=== PATIENT | female | born 1975 | race Caucasian/White ===

== ENCOUNTER 2019-01-07 13:47 | Emergency (ER) | payer OTHER ==
[2019-01-07] MEDS ORDERED: PROCHLORPERAZINE EDISYLATE INJ 10 MG/2 ML VIAL IV ONE (14:56)
[2019-01-07] MEDS ORDERED: KETOROLAC TROMETHAMINE INJ/PF 30 MG/1 ML SDV IV ONE (14:56)
[2019-01-07] MEDS ORDERED: NORMAL SALINE 1000 ML 1,000 ML IV ONE (14:56)
--- NOTE | 2019-01-07 15:20 | ER Document Report ---
ED Medical Screen (RME) - General Chief Complaint: Headache Stated Complaint: HEADACHE Time Seen by Provider: 01/07/19 14:52 Notes: Patient is a 43-year-old female presents to the emergency department for generalized migraine, photophobia, nausea, vomiting. Patient states she has an extensive history of migraines and has had a consistent migraine for the last 3 weeks. Patient states she was to [facility] emergency room 4 times and adm itted to the ICU twice for DHE treatment. Patient states she is also going to her primary care provider for times. Patient states at no time during the last 3 weeks that she had any relief from her migraines. Patient states she is coming to this facility for the first time in hopes to get some "answers." Patient states at [facility] they did perform a CT. States she wishes to sign paperwork to get the medical records transferred to us if she does not have to go for another CT scan. GENERAL: Alert, interacts well. HEAD: Normocephalic, atraumatic. EYES: Pupils equal, round, and reactive to light. Extraocular movements intact. Photophobia noted NEUROLOGICAL: Alert and oriented x3. Normal speech. SKIN: Warm, dry, normal turgor. No rashes or lesions noted. I have greeted and performed a rapid initial assessment of this patient. A comprehensive ED assessment and evaluation of the patient, analysis of test results and completion of the medical decision making process will be conducted by additional ED providers. TRAVEL OUTSIDE OF THE [place] IN LAST 30 DAYS: No - Related Data Allergies/Adverse Reactions: codeine Allergy (Verified 01/07/19 13:53) Penicillins Allergy (Verified 01/07/19 13:53) Past Medical History - Past Medical History Cardiac Medical History: Reports: Hx Hypertension Pulmonary Medical History: Reports: Hx Asthma Neurological Medical History: Reports: Hx Migraine Renal/ Medical History: Denies: Hx Peritoneal Dialysis Past Surgical History: Reports: Hx Breast Surgery - milk duct removal, Hx Section - 2, Hx Cholecystectomy, Hx Hysterectomy Physical Exam - Vital signs Vitals: Temp Pulse Resp BP Pulse Ox 98.4 F 72 18 141/78 H 99 01/07/19 13:59 01/07/19 13:59 01/07/19 13:59 01/07/19 13:59 01/07/19 13:59 Course - Vital Signs Vital signs: Temp Pulse Resp BP Pulse Ox 98.4 F 72 18 141/78 H 99 01/07/19 13:59 01/07/19 13:59 01/07/19 13:59 01/07/19 13:59 01/07/19 13:59
[2019-01-07] MEDS ORDERED: DEXAMETHASONE SOD PHOS INJ 10 MG/1 ML VIAL IV ONE (18:35)
[2019-01-07] MEDS ORDERED: TETRACAINE HCL 0.5% OPH SOLN 4 ML OD ONE (18:40)
--- NOTE | 2019-01-07 18:40 | ER Document Report ---
ED General - General Chief Complaint: Headache Stated Complaint: HEADACHE Time Seen by Provider: 01/07/19 14:52 TRAVEL OUTSIDE OF THE [place] IN LAST 30 DAYS: No - HPI Notes: Patient is a 43-year-old female that presents to the emergency department for chief complaint of migraine headache. Patient reports migraine headache for the last 3 weeks. She states it is located behind her right eye. The pain is sharp. She has associated nausea, photophobia and phonophobia. She does have a history of migraine headaches and states this feels the same as previous headaches. She reports multiple visits to her primary care doctor as well as admission at [facility] for this exact migraine. She states when she was discharged from their facility her pain was 8/10. She does have an appointment tomorrow with her primary care provider for reevaluation. She states the pain was too severe which is why she came back. She has been taking Topamax and Imitrex at home for the migraine. She denies any head injury or new symptoms today compared to prior migraines in the past. She denies any fever, neck pain, chest pain, shortness of breath, vomiting and abdominal pain. Past Medical History: Migraine headaches, anxiety Past Surgical History: Breast reconstruction, x2, partial hysterectomy, cholecystectomy Social History: Denies tobacco and alcohol use Family History: Reviewed and noncontributory for presenting illness Allergies: Reviewed, see documented allergy list. REVIEW OF SYSTEMS: CONSTITUTIONAL : No fever No chills No diaphoresis No recent illness EENT: No vision changes No congestion No sore throat CARDIOVASCULAR: No chest pain No palpitations RESPIRATORY: No shortness of breath No cough No difficulty breathing GASTROINTESTINAL: No abdominal pain No nausea No vomiting No diarrhea GENITOURINARY: No dysuria No hematuria No difficulty urinating MUSCULOSKELETAL: No back pain No leg pain No arm pain SKIN: No rashes No lesions LYMPHATIC: No swollen, enlarged glands. NEUROLOGICAL: No lightheadedness headache No weakness No paresthesias PSYCHIATRIC: No anxiety No depression PHYSICAL EXAMINATION: Vital signs reviewed, nursing noted reviewed. GENERAL: Appears uncomfortable, well-nourished HEAD: Atraumatic, normocephalic. EYES: Eyes appear normal, extraocular movements intact, sclera anicteric, conjunctiva are normal. ENT: nares patent, oropharynx clear without exudates. Moist mucous membranes. NECK: Normal range of motion, supple without lymphadenopathy LUNGS: Breath sounds clear to auscultation bilaterally and equal. No wheezes rales or rhonchi. HEART: Regular rate and rhythm without murmurs ABDOMEN: Soft, nontender, normoactive bowel sounds. No rebound, guarding, or rigidity. No masses appreciated. EXTREMITIES: Nontender, good range of motion, no pitting or edema. NEUROLOGICAL: No focal neurological deficits. Moves all extremities spontaneously Motor and sensory grossly intact on exam. PSYCH: Normal mood, normal affect. SKIN: Warm, Dry, normal turgor, no rashes or lesions noted on exposed skin - Related Data Allergies/Adverse Reactions: codeine Allergy (Verified 01/07/19 13:53) Penicillins Allergy (Verified 01/07/19 13:53) Past Medical History - Social History Smoking Status: Never Smoker Family History: Reviewed & Not Pertinent Patient has suicidal ideation: No Patient has homicidal ideation: No - Past Medical History Cardiac Medical History: Reports: Hx Hypertension Pulmonary Medical History: Reports: Hx Asthma Neurological Medical History: Reports: Hx Migraine Renal/ Medical History: Denies: Hx Peritoneal Dialysis Past Surgical History: Reports: Hx Breast Surgery - milk duct removal, Hx Section - 2, Hx Cholecystectomy, Hx Hysterectomy Physical Exam - Vital signs Vitals: Temp Pulse Resp BP Pulse Ox 98.4 F 72 18 141/78 H 99 01/07/19 13:59 01/07/19 13:59 01/07/19 13:59 01/07/19 13:59 01/07/19 13:59 Course - Re-evaluation Re-evalutation: 01/07/19 18:39 Vitals reviewed. Nursing notes reviewed. Patient's migraine is reportedly the same as her previous migraines. She did have a recent admission to the hospital which included CT scan. She states the CT brain was normal. She was evaluated by Dr. Thomas, neurology at [facility] as well. Patient denies any change in her symptoms today compared to the previous 3 weeks. She is afebrile with no focal neurologic deficits. Further workup of the etiology of her headache not currently indicated. Patient received medications in triage which she reports have not improved her headache. She will be given a dose of Decadron. Patient has stated the only medication that has helped previously was ketamine. If she is not getting relief from Decadron then ketamine will be indicated. 01/07/19 20:03 Patient's right eye was numbed with tetracaine and intraocular pressures were checked. She had one reading of 15 and 1 of 16. Patient does not have acute closed angle glaucoma or increased intraocular pressures. She had no improvement of symptoms after the Decadron. Patient will now be given pain level dosing of ketamine. 01/07/19 21:53 Patient reevaluated and had complete resolution of her headache. She is still neurologically intact. She will be discharged home in stable condition. She was told to follow with her doctor as already scheduled. - Vital Signs Vital signs: Temp Pulse Resp BP Pulse Ox 97.8 F 72 14 168/94 H 100 01/07/19 19:04 01/07/19 13:59 01/07/19 20:31 01/07/19 20:31 01/07/19 20:31 Discharge - Discharge Clinical Impression: Migraine headache Qualifiers: Migraine type: other Status migrainosus presence: with status migrainosus Intractability: not intractable Qualified Code(s): G43.801 - Other migraine, not intractable, with status migrainosus Condition: Stable Disposition: HOME, SELF-CARE Instructions: Headache (OM) Additional Instructions: Please return to the emergency department if you have any worsening, or concern of your symptoms. Please return to the emergency department if you develop chest pain, difficulty breathing, severe abdominal pain, or ongoing vomiting. Please follow-up with your primary care physician in 2-3 days and any other recommended physicians. If prescribed, take all medications as directed. If you have any questions or concerns do not hesitate to return the emergency department for evaluation.
[2019-01-07] MEDS ORDERED: KETAMINE HCL INJ 500 MG/10 ML VIAL IV ONE (19:54)
[2019-01-07] MEDS ORDERED: ONDANSETRON HCL INJ/PF 4 MG/2 ML SDV IV ONE (20:05)
[2019-01-07 20:58] VITALS: BP 168/94
== END 2019-01-07 20:45 | disposition home or self-care (01) ==
LOC: ER 13:47
DX: G43.801 Other migraine, not intractable, with status migrainosus (principal); R11.0 Nausea; H53.149 Visual discomfort, unspecified; Z79.899 Other long term (current) drug therapy; I10 Essential (primary) hypertension; J45.909 Unspecified asthma, uncomplicated
CPT/HCPCS: 99283; 96361; 96374; 96375; J3490 ×2; J1885; J0780; J2405; J7030; J1100